=== PATIENT | male | born 1970 | race Caucasian/White ===

== ENCOUNTER → 2016-12-19 | Outpatient (CLI) | payer OTHER | END | disposition home or self-care (01) | LOC: LABWHC1 08:01 | PROVIDERS: ATTEND Psychiatry & Neurology Neurology | DX: G40.209 Localization-related (focal) (partial) symptomatic epilepsy and epileptic syndromes with complex partial seizures, not intractable, without status epilepticus (principal) | CPT/HCPCS: 36415; 80177 ==

== ENCOUNTER → 2017-09-14 | Outpatient (CLI) | payer OTHER | LOC: LABWHC1 08:10 | PROVIDERS: ATTEND Psychiatry & Neurology Neurology | DX: G40.209 Localization-related (focal) (partial) symptomatic epilepsy and epileptic syndromes with complex partial seizures, not intractable, without status epilepticus (principal) | CPT/HCPCS: 36415; 80177 ==

== ENCOUNTER → 2018-03-09 | Outpatient (CLI) | payer OTHER ==
--- NOTE | 2018-03-09 12:59 | ECHOS ---
STRESS ECHOCARDIOGRAM DATE OF SERVICE: 03/09/2018 INDICATIONS: Abnormal EKG MEDICATIONS: Lipitor. BASELINE HEART RATE: 70 BASELINE BLOOD PRESSURE: 110/52 MAXIMUM HEART RATE: 158 MAXIMUM BLOOD PRESSURE: 202/74 85% MPHR: 148 100% MPHR: 172 METS: 12.5 MAXIMUM STAGE REACHED: V TOTAL EXERCISE TIME: 12 minutes 15 seconds CLINICAL INFORMATION: Baseline rhythm sinus mechanism, rate of 70, RSR prime. Baseline blood pressure 110/52 mmHg. Patient exercised on Luigi protocol for 12 minute 15 seconds reaching a peak rate 158 beats per minute which is equal 92% maximum predicted heart rate. Peak blood pressure 202/74 mmHg. Test was terminated secondary to fatigue. There was chest pain. Electrocardiograph monitoring revealed no evidence of diagnostic ischemic ST deviation. Baseline echocardiogram revealed normal wall motion. At peak exercise, there was normal wall motion and augmentation. CONCLUSION: 1. Excellent exercise tolerance with normal electrocardiograph response to exercise. 2. Normal stress echocardiogram with no evidence of stress induced ischemia. MMODL / IJN: [id number] /
== END | disposition home or self-care (01) ==
LOC: RADNMMAIN 10:34
PROVIDERS: ATTEND Family Medicine
DX: R94.31 Abnormal electrocardiogram [ECG] [EKG] (principal)
CPT/HCPCS: 93351

== ENCOUNTER → 2018-05-07 | Outpatient (CLI) | payer OTHER | END | disposition home or self-care (01) | LOC: LABWHC1 08:27 | PROVIDERS: ATTEND Psychiatry & Neurology Neurology | DX: G40.209 Localization-related (focal) (partial) symptomatic epilepsy and epileptic syndromes with complex partial seizures, not intractable, without status epilepticus (principal) | CPT/HCPCS: 36415; 80177 ==

== ENCOUNTER → 2018-11-29 | Outpatient (CLI) | payer OTHER | END | disposition home or self-care (01) | LOC: LABWHC1 08:20 | PROVIDERS: ATTEND Psychiatry & Neurology Neurology | DX: G40.209 Localization-related (focal) (partial) symptomatic epilepsy and epileptic syndromes with complex partial seizures, not intractable, without status epilepticus (principal) | CPT/HCPCS: 36415; 80177 ==

== ENCOUNTER 2019-05-20 12:40 | Inpatient (IN) | payer OTHER ==
--- NOTE | 2019-05-20 13:43 | ED ---
Recheck HPI - General Source: patient, RN notes reviewed Mode of arrival: ambulatory Limitations: no limitations <Sid Culver - Last Filed: 05/20/19 15:24> <Brenden Patricia - Last Filed: 05/20/19 15:33> - General Chief Complaint: Recheck/Abnormal Lab/Rx Stated Complaint: Finger wound Time Seen by Provider: 05/20/19 13:08 - History of Present Illness Initial Comments: 49-year-old male presents emergency from chief complaint infection to his right hand third digit. Patient states that he has been seen Dr. Briones his PCP for this states that it started after doing some window work. He states it started as a small callous or blisterlike area states that it opened up and has progressed. He took a course of Keflex and states that then he was placed on Bactrim for a week and he said no improvement states it continues to worsen, increasing opening wound with purulent drainage increasing pain. Patient saw PCP today sent here for further evaluation, infectious disease consult and IV antibiotics. (Sid Culver) - Related Data Home Medications Medication Instructions Recorded Confirmed levETIRAcetam 1,000 mg PO BID 09/22/14 09/26/14 Allergies Allergy/AdvReac Type Severity Reaction Status Date / Time No Known Allergies Allergy Verified 05/20/19 13:03 Review of Systems ROS Other: All systems not noted in ROS Statement are negative. <Sid Culver - Last Filed: 05/20/19 15:24> ROS Other: All systems not noted in ROS Statement are negative. <Brenden Patricia - Last Filed: 05/20/19 15:33> ROS Statement: Those systems with pertinent positive or pertinent negative responses have been documented in the HPI. Past Medical History Past Medical History: Seizure Disorder Additional Past Medical History / Comment(s): epilepsy History of Any Multi-Drug Resistant Organisms: None Reported Past Surgical History: Back Surgery Past Anesthesia/Blood Transfusion Reactions: No Reported Reaction Past Psychological History: No Psychological Hx Reported Smoking Status: Never smoker Past Alcohol Use History: None Reported Past Drug Use History: None Reported - Past Family History Mother Family Medical History: Cancer <Sid Culver - Last Filed: 05/20/19 15:24> General Exam Limitations: no limitations General appearance: alert, in no apparent distress Head exam: Present: atraumatic, normocephalic, normal inspection Eye exam: Present: normal appearance, PERRL, EOMI. Absent: scleral icterus, conjunctival injection, periorbital swelling Respiratory exam: Present: normal lung sounds bilaterally. Absent: respiratory distress, wheezes, rales, rhonchi, stridor Cardiovascular Exam: Present: regular rate, normal rhythm, normal heart sounds. Absent: systolic murmur, diastolic murmur, rubs, gallop, clicks Extremities exam: Present: other (Right hand third digit there is an open area o n the ventral surface of the finger between the MCP and PIP there is some purulent drainage and bogginess the area) Skin exam: Present: warm, dry, intact <Sid Culver - Last Filed: 05/20/19 15:24> Course Vital Signs 05/20/19 13:03 Temperature 98.2 F Pulse Rate 82 Respiratory 16 Rate Blood Pressure 129/86 O2 Sat by Pulse 99 Oximetry Medical Decision Making - Lab Data Result diagrams: 05/20/19 13:35 05/20/19 13:35 <Sid Culver - Last Filed: 05/20/19 15:24> - Lab Data Result diagrams: 05/20/19 13:35 05/20/19 13:35 <Brenden Patricia - Last Filed: 05/20/19 15:33> - Medical Decision Making Patient's labwork is unremarkable chest x-ray shows no acute abnormality. Patient's has ongoing finger infection in which she's felt to antibiotics outpatient. Patient be admitted for IV antibiotics and ID consult (Sid Culver) Patient reexamined and reevaluated by myself, Dr. Patricia. I do agree with PAs findings. This includes interpretation and treatment plan as well as results. Case was discussed in detail with Dr. Kirkland, who will admit covering for Dr. Briones. (Brenden Patricia) - Lab Data Lab Results 05/20/19 05/20/19 05/20/19 Range/Units 13:35 13:35 13:35 WBC 7.3 (3.8-10.6) k/uL RBC 4.91 (4.30-5.90) m/uL Hgb 15.3 (13.0-17.5) gm/dL Hct 44.7 (39.0-53.0) % MCV 91.1 (80.0-100.0) fL MCH 31.2 (25.0-35.0) pg MCHC 34.3 (31.0-37.0) g/dL RDW 11.9 (11.5-15.5) % Plt Count 235 (150-450) k/uL Neutrophils % 65 % Lymphocytes % 18 % Monocytes % 7 % Eosinophils % 6 % Basophils % 2 % Neutrophils # 4.7 (1.3-7.7) k/uL Lymphocytes # 1.3 (1.0-4.8) k/uL Monocytes # 0.5 (0-1.0) k/uL Eosinophils # 0.4 (0-0.7) k/uL Basophils # 0.1 (0-0.2) k/uL Sodium 139 (137-145) mmol/L Potassium 4.0 (3.5-5.1) mmol/L Chloride 101 (98-107) mmol/L Carbon Dioxide 25 (22-30) mmol/L Anion Gap 13 mmol/L BUN 17 (9-20) mg/dL Creatinine 0.85 (0.66-1.25) mg/dL Est GFR (CKD-EPI)AfAm >90 (>60 ml/min/1.73 sqM) Est GFR (CKD-EPI)NonAf >90 (>60 ml/min/1.73 sqM) Glucose 100 H (74-99) mg/dL Plasma Lactic Acid Tevin 0.9 (0.7-2.0) mmol/L Calcium 10.1 (8.4-10.2) mg/dL Total Bilirubin 0.5 (0.2-1.3) mg/dL AST 44 (17-59) U/L ALT 108 H (21-72) U/L Alkaline Phosphatase 64 (38-126) U/L Total Protein 8.4 H (6.3-8.2) g/dL Albumin 5.4 H (3.5-5.0) g/dL Disposition <Sid Culver - Last Filed: 05/20/19 15:24> <Brenden Patricia - Last Filed: 05/20/19 15:33> Clinical Impression: Failure of outpatient treatment, Open wound of finger, infected Disposition: ADMITTED IP TO THIS [facility] Condition: Stable Referrals: Woo Briones MD [Primary Care Provider] - 1-2 days
[2019-05-20 13:48] LABS: Basophils # (A) 0.1 k/uL (0-0.2); Basophils % (A) 2 %; Eosinophils # (A) 0.4 k/uL (0-0.7); Eosinophils % (A) 6 %; HCT 44.7 % (39.0-53.0); HGB 15.3 gm/dL (13.0-17.5); Lymphocytes # (A) 1.3 k/uL (1.0-4.8); Lymphocytes % (A) 18 %; MCH 31.2 pg (25.0-35.0); MCHC 34.3 g/dL (31.0-37.0); MCV 91.1 fL (80.0-100.0); Monocytes # (A) 0.5 k/uL (0-1.0); Monocytes % (A) 7 %; Neutrophils # (A) 4.7 k/uL (1.3-7.7); Neutrophils % (A) 65 %; Platelet Count 235 k/uL (150-450); RBC 4.91 m/uL (4.30-5.90); RDW 11.9 % (11.5-15.5); WBC 7.3 k/uL (3.8-10.6)
[2019-05-20 14:09] LABS: ALT 108 U/L (21-72); AST 44 U/L (17-59); African American GFR (CKD) >90 (>60 ml/min/1.73 sqM); Albumin 5.4 g/dL (3.5-5.0); Alkaline Phosphatase 64 U/L (38-126); Anion Gap 13 mmol/L; Blood Urea Nitrogen 17 mg/dL (9-20); Calcium 10.1 mg/dL (8.4-10.2); Carbon Dioxide 25 mmol/L (22-30); Chloride 101 mmol/L (98-107); Glucose 100 mg/dL (74-99); Sodium 139 mmol/L (137-145); Total Bilirubin 0.5 mg/dL (0.2-1.3); Total Protein 8.4 g/dL (6.3-8.2)
--- NOTE | 2019-05-20 14:18 | XR ---
EXAMINATION TYPE: XR finger RT DATE OF EXAM: 05/20/2019 CLINICAL HISTORY: Infection of the right middle finger with pain TECHNIQUE: Frontal, lateral and oblique images of the right middle finger were obtained. COMPARISON: None. FINDINGS: There is no acute fracture/dislocation evident in the right hand. The joint spaces in the right hand appear within normal limits. No subcutaneous emphysema. No radiopaque foreign body. No per iosteal reaction. No cortical erosion. The overlying soft tissue demonstrates mild soft tissue swelli ng of the weems aspect of the proximal third digit. IMPRESSION: There is no acute fracture or dislocation in the right hand. Mild soft tissue swelling i s seen of the palmar proximal third digit without radiopaque foreign body nor radiographic sequela of osteomyelitis.
[2019-05-20] MEDS ORDERED: VANCOMYCIN IV PER PHARMACY 1 EACH MISC MISCELLANE PRN (15:23)
[2019-05-20] MEDS ORDERED: IBUPROFEN 400 MG TAB PO PRN (15:26)
[2019-05-20] MEDS ORDERED: ACETAMINOPHEN TAB 325 MG TAB PO PRN (15:26)
[2019-05-20] MEDS ORDERED: NALOXONE 0.4 MG/ML 1 ML VIAL IV PRN (15:26)
[2019-05-20] MEDS ORDERED: VANCOMYCIN 1,500 MG in SODIUM CHLORIDE 0.9% 250 ML IVPB STA (15:30)
[2019-05-20] MEDS: levETIRAcetam 500 MG TAB PO SCH (20:53)
[2019-05-20] MEDS: ATORVASTATIN 10 MG TAB PO SCH (20:53)
--- NOTE | 2019-05-20 23:47 | P.CONS ---
History of Present Illness - Reason for Consult Consult date: 05/20/19 Right third digit wound and cellulitis Requesting physician: Mckay Kirkland - Chief Complaint Right third digit wound and pain x few weeks - History of Present Illness Patient is a 49-year-old male who did sustained injury to his right third finger base on the palmar aspect about 3 weeks ago while he was trying to work on some windows/glass, the patient states initially he did have small blister in that area that has opened up late information of an ulcer with some surrounding swelling and redness the patient did have some dull aching pain to the area which at times can be throbbing intensity about 4-5 out of 10 and no radiation with associated swelling and redness the patient has been evaluated by his primary care physician and the patient has been treated with oral Keflex followed by Bactrim DS without any improvement the patient went to see his primary care physician today who sent the patient to the ER for admission to the hospital for IV antibiotic patient was quite limited by the ER physician showed on arrival to the ER has been afebrile his white count was normal the patient did have an x-rays of the right hand which did show some soft tissue swelling but no evidence of any foreign body or evidence of any bony changes patient did receive a dose of Rocephin has been started on vancomycin and admitted to the hospital infectious disease was consulted for further recommendation regarding antibiotic therapy Review of Systems CONSTITUTIONAL: Positive for weakness. Denies high-grade Fever EYES: No complaint. ENT:No complaint. RESPIRATORY: No complaint. CARDIOVASCULAR: No complaint. GENITOURINARY: No complaint. GASTROINTESTINAL: No complaint. MUSCULOSKELETAL: As per history of present illness INTEGUMENTARY: As per history of present illness PSYCHOLOGICAL: No complaint. ENDOCRINE: No complaint. NEUROLOGIC: No complaint. Past Medical History Past Medical History: Seizure Disorder Additional Past Medical History / Comment(s): epilepsy History of Any Multi-Drug Resistant Organisms: None Reported Past Surgical History: Back Surgery Past Anesthesia/Blood Transfusion Reactions: No Reported Reaction Past Psychological History: No Psychological Hx Reported Smoking Status: Never smoker Past Alcohol Use History: None Reported Past Drug Use History: None Reported - Past Family History Mother Family Medical History: Cancer Medications and Allergies Home Medications Medication Instructions Recorded Confirmed Type levETIRAcetam 1,000 mg PO BID 09/22/14 05/20/19 History Atorvastatin [Lipitor] 20 mg PO HS 05/20/19 05/20/19 History Sulfamethox-Tmp 800-160Mg [Bactrim 1 tab PO Q12HR 05/20/19 05/20/19 History DS 800-160 mg] Allergies Allergy/AdvReac Type Severity Reaction Status Date / Time No Known Allergies Allergy Verified 05/20/19 18:07 Physical Exam Vitals: Vital Signs Temp Pulse Resp BP Pulse Ox 05/20/19 13:03 98.2 F 82 16 129/86 99 Intake and Output 05/20/19 05/20/19 05/20/19 06:59 14:59 22:59 Other: Weight 88.451 kg GENERAL DESCRIPTION: Middle-aged male lying in bed, no distress. No tachypnea or accessory muscle of respiration use. HEENT: Shows Pallor , no scleral icterus. Oral mucous membrane is dry. No pharyngeal erythema or thrush NECK: Trachea central, no thyromegaly. LUNGS: Unlabored breathing. Clear to auscultation anteriorly. No wheeze or crackle. HEART: S1, S2, regular rate and rhythm. No loud murmur ABDOMEN: Soft, no tenderness , guarding or rigidity, no organomegaly EXTREMITIES: Right middle finger is swollen did have a wound at the base of the right third finger wound base with no slough tissue minimal redness no drainage SKIN: No rash, no masses palpable. NEUROLOGICAL: The patient is awake, alert, oriented x3, mood and affect normal. Results CBC & Chem 7: 05/20/19 13:35 05/20/19 13:35 Labs: Abnormal Lab Results - Last 24 Hours (Table) 05/20/19 Range/Units 13:35 Glucose 100 H (74-99) mg/dL ALT 108 H (21-72) U/L Total Protein 8.4 H (6.3-8.2) g/dL Albumin 5.4 H (3.5-5.0) g/dL Assessment and Plan Assessment: 1-patient with a right third finger wound traumatic with secondary cellulitis failing outpatient oral Keflex and Bactrim DS therapy clinically, will need: More likely from gram-positive skin dc to be responsible for these infection and nonhealing of the wound looks suspiciously low for underlying deep infection (1) Failure of outpatient treatment Current Visit: Yes Status: Acute Code(s): Z78.9 - OTHER SPECIFIED HEALTH STATUS SNOMED Code(s): 246414244 (2) Open wound of finger, infected Current Visit: Yes Status: Acute Code(s): S61.209A - UNSP OPEN WOUND OF UNSP FINGER W/O DAMAGE TO NAIL, INIT; L08.9 - LOCAL INFECTION OF THE SKIN AND SUBCUTANEOUS TISSUE, UNSP SNOMED Code(s): 800727797 Plan: 1-Vancomycin pharmacy to dose target trough of 15 while watching his kidney function and Vanco trough closely 2-local wound care to with a dry Aquacel silver dressing to be changed daily We will follow on clinical condition and cultures to further adjust medication if needed Thank you for this consultation will follow this patient with you Time with Patient: Greater than 30
[2019-05-21] MEDS: VANCOMYCIN 1,500 MG in SODIUM CHLORIDE 0.9% 250 ML IVPB SCH ×4 (00:31→23:37)
[2019-05-21] MEDS: levETIRAcetam 500 MG TAB PO SCH ×2 (07:35→20:09)
--- NOTE | 2019-05-21 12:50 | P.CNOR ---
History of Present Illness - [facility] Consult date: 05/21/19 Requesting physician: Mckay Kirkland Consult reason: other (Right middle finger proximal phalanx wound and pain; evaluate for possible I&D) History of present illness: Patient is a very pleasant 49-year-old male who is seen and examined at bedside for further evaluation of his right middle finger. Consultation was placed for possible irrigation debridement. Patient states approximately 4 weeks ago he was working with his right hand when he may have got a splinter or another injury to the padding of the proximal phalanx of the right middle finger. He states he began to experience some swelling and redness at this area. He followed with his primary care provider and was prescribed Keflex. He began to wrap his finger. He follow back up with his primary care provider after the antibiotic was not providing any significant improvement of the symptoms. He states after removing the bandage a large piece of skin over the wound site came off as well. He was started on Bactrim.. He states since that time his finger had continued to weep. He has had difficulty with working regular activities daily living due to his finger. He states the second antibiotic also did not provide any improvement of his symptoms. He states he followed up with his primary provider yesterday, 05/20/2019, who recommended him coming to the hospital for further evaluation. He was admitted. He has been seen and exam by Dr. Wilson in infectious disease. He has been started on vancomycin IV. He was also prescribed dressing changes of Aquacel, silver, and wrap. Patient denies any other injuries or difficulty. He denies specific injury to that right middle finger. He has active range of motion of other fingers and wrist of the right hand without difficulty. X-rays of the right middle finger were taken in the emergency department. Past Medical History Past Medical History: Seizure Disorder Additional Past Medical History / Comment(s): epilepsy History of Any Multi-Drug Resistant Organisms: None Reported Past Surgical History: Back Surgery Past Anesthesia/Blood Transfusion Reactions: No Reported Reaction Past Psychological History: No Psychological Hx Reported Smoking Status: Never smoker Past Alcohol Use History: None Reported Past Drug Use History: None Reported - Past Family History Mother Family Medical History: Cancer Medications and Allergies Home Medications Medication Instructions Recorded Confirmed Type levETIRAcetam 1,000 mg PO BID 09/22/14 05/20/19 History Atorvastatin [Lipitor] 20 mg PO HS 05/20/19 05/20/19 History Sulfamethox-Tmp 800-160Mg [Bactrim 1 tab PO Q12HR 05/20/19 05/20/19 History DS 800-160 mg] Allergies Allergy/AdvReac Type Severity Reaction Status Date / Time No Known Allergies Allergy Verified 05/20/19 18:07 Physical Examination Physical Exam: Patient is awake, alert, and oriented 3 Vital signs stable Good chest excursion with deep inspiration and expiration Examination of the right middle finger shows evidence of a large superficial abrasion/loss of skin over the pad of the middle finger at the right proximal phalanx Some evidence of weeping over the wound site of the proximal phalanx of the right middle finger Evidence of some skin irritation over the posterior aspect of the proximal phalanx of the right middle finger also with some weeping No evidence of significant bruising or obvious signs of infection over the right middle finger or right hand No evidence of streaking or obvious cellulitis over the right middle finger or right hand Active range of motion of all fingers of the right hand without significant difficulty Neurovascularly intact right upper extremity Results Pertinent studies: X-rays the right middle finger taken on 05/20/2019: No acute fracture or dislocation in the right hand: Mild soft tissue swelling is seen in the palmar proximal third digit without radiopaque foreign body or radiographic sequelae of osteomyelitis - Labs Labs: Abnormal Lab Results - Last 24 Hours (Table) 05/20/19 Range/Units 13:35 Glucose 100 H (74-99) mg/dL ALT 108 H (21-72) U/L Total Protein 8.4 H (6.3-8.2) g/dL Albumin 5.4 H (3.5-5.0) g/dL H & H 05/20/19 Range/Units 13:35 Hgb 15.3 (13.0-17.5) gm/dL Hct 44.7 (39.0-53.0) % Result Diagrams: 05/20/19 13:35 05/20/19 13:35 Assessment and Plan Assessment: Assessment: Right middle finger proximal phalanx pain Right middle finger proximal phalanx wound Failure of outpatient antibiotic regimen 2 History of epilepsy and seizure disorder (1) Finger pain, right Current Visit: Yes Status: Acute Code(s): M79.644 - PAIN IN RIGHT FINGER(S) SNOMED Code(s): 04468890 (2) History of epilepsy Current Visit: Yes Status: Acute Code(s): Z86.69 - PERSONAL HISTORY OF DIS OF THE NERVOUS SYS AND SENSE ORGANS SNOMED Code(s): 455082496 (3) Failure of outpatient treatment Current Visit: Yes Status: Acute Code(s): Z78.9 - OTHER SPECIFIED HEALTH STATUS SNOMED Code(s): 688084341 (4) Open wound of finger, infected Current Visit: Yes Status: Acute Code(s): S61.209A - UNSP OPEN WOUND OF UNSP FINGER W/O DAMAGE TO NAIL, INIT; L08.9 - LOCAL INFECTION OF THE SKIN AND SUBC UTANEOUS TISSUE, UNSP SNOMED Code(s): 831348036 Plan: Plan: 1. Patient has been discussed in detail with Dr. Gibran Evans. After physical examination the patient, further discussion with the patient, and reviewing imaging, we currently planning continue conservative treatment at this time. We are not planning for surgical intervention at the right proximal phalanx of the middle finger. He does have evidence of a significant skin abrasion/skin loss at the pad of the right proximal phalanx of the right middle finger without evidence of palpable fluid collection or obvious sign of infection. There is some weeping at the wound site without any purulent discharge. He has failed outpatient treatment with 2 separate oral antibiotics. At this time he is being seen and examined by Dr. Wilson in infectious disease and is currently on vancomycin. We recommend continuing with IV antibiotics as well as dressing changes as set forth by Dr. Wilson. If the patient's symptoms improve with conservative treatment, patient is clear for discharge from an orthopedic standpoint. We may plan to have the patient follow-up in outpatient setting in approximately 1 week for further evaluation. If the patient continues to i mprove in the outpatient setting, he may cancel this appointment prior to scheduled follow-up appointment time 2. Patient will continue be seen and examined by other medical providers including Dr. Wilson in infectious disease. Time with Patient: Greater than 30 (Including obtaining history, physical examination, reviewing of imaging, and dictation.)
[2019-05-21 14:23] LABS: C Reactive Protein <5.0 mg/L (<10.0); Uric Acid 4.4 mg/dL (3.5-8.5)
--- NOTE | 2019-05-21 16:56 | HP ---
HISTORY AND PHYSICAL DATE OF SERVICE: 05/21/2019 I am covering for Dr. Briones. CHIEF COMPLAINT: Pain and swelling of the right third digit. HISTORY OF PRESENT ILLNESS: This 49-year-old gentleman with a past medical history of seizure disorder, history of epilepsy, being followed by Dr. Woo Briones in the outpatient setting complaining of pain and swelling of the right 3rd digit proximal phalanx area. The patient noted swelling and blister-like lesions subsequently, which broke open and started discharging. The patient is complaining of pain and swelling. The patient has some difficulty in bending that particular finger also. Because of multiple difficulties, the patient came to [facility] and was admitted for further evaluation and treatment. Infectious Disease and Orthopedic evaluation in progress. There is no history of any chest pain, palpitation, shortness of breath, hematochezia, melena, fever, rigors, chills at this time. PAST MEDICAL HISTORY: Seizure disorder and epilepsy. MEDICATIONS ARE: 1. Bactrim DS 1 p.o. b.i.d. 2. Lipitor 20 mg q.h.s. 3. Keppra 1000 mg p.o. b.i.d. ALLERGIES: None. FAMILY HISTORY: History of cancer in the family. SOCIAL HISTORY: No history of smoking. Occasional alcohol intake. REVIEW OF SYSTEMS: ENT: No diminished vision. No diminished hearing. CARDIOVASCULAR: No angina or palpitations. RESPIRATORY SYSTEM: No cough or hemoptysis. GI no nausea or vomiting. no dysuria. NERVOUS SYSTEM: As mentioned earlier. ALLERGY/IMMUNOLOGY: No asthma or hayfever. MUSCULOSKELETAL: As mentioned earlier. HEMATOLOGY/ONCOLOGY: No history of anemia. ENDOCRINE: No history of diabetes or hypothyroidism. CONSTITUTIONAL: As mentioned earlier. DERMATOLOGY as mentioned earlier. RHEUMATOLOGY: Negative. PSYCHIATRY as mentioned earlier. PHYSICAL EXAMINATION: Alert and oriented times three. Pulse 66. Blood pressure 120/72, respiration 18, temperature 97 degrees, pulse ox 97% on room air. HEENT: Conjunctivae normal. NECK: No JVD. CARDIOVASCULAR: S1, S2. RESPIRATIONS: Breath sounds diminished in the bases. No rhonchi. No crackles. ABDOMEN: Soft, nontender. No mass palpable. LEGS: No edema. No swelling. NERVOUS SYSTEM: Higher functions as mentioned earlier. Moves all 4 limbs. No focal motor or sensory deficits. LYMPHATICS: No lymph nodes palpable in the neck, axillae or groin. SKIN: Some excoriation of the middle finger proximal phalanx. Otherwise normal. JOINTS: No active deforming arthropathy. Examination of the right hand significant pain and swelling of proximal phalanx of the right 3rd digit present with some excoriation and denudation of the skin also present. No purulent discharge is noted. The movement of the 3rd digit, especially in the metacarpophalangeal and proximal interphalangeal joints limited. LABS: CBC within normal limits. Glucose is 100, ALT is 108, and total protein is 8.2 and albumin is 5.5. ASSESSMENT: 1. Right third digit cellulitis with failure of outpatient treatment. 2. Increased ALT. 3. History of seizure disorder. 4. History of back surgery/degenerative joint disease. RECOMMENDATIONS AND DISCUSSION: In this 49-year-old gentleman who presented with multiple complex medical issues, we will monitor the patient closely, continue to monitor. Infectious Disease has been consulted. The patient is started on vancomycin and Rocephin. Obtain cultures. I would also recommend orthopedic evaluation also. Otherwise, a finger x-ray was done which showed no acute fracture and mild soft tissue swelling. We will closely follow with Infectious Disease as well as Orthopedic surgery. Further recommendations to follow. Orthopedic surgery is planning continued IV antibiotics and conservative line of management currently and outpatient followup. MMODL / IJN: [id number] /
[2019-05-21] MEDS: ATORVASTATIN 10 MG TAB PO SCH (20:09)
[2019-05-22] MEDS ORDERED: VANCOMYCIN TROUGH DUE 1 EACH MISC MISCELLANE ONE (07:00)
[2019-05-22] MEDS: levETIRAcetam 500 MG TAB PO SCH ×2 (07:19→21:44)
[2019-05-22] MEDS: VANCOMYCIN 1,500 MG in SODIUM CHLORIDE 0.9% 250 ML IVPB SCH ×3 (07:19→23:11)
[2019-05-22 08:01] LABS: Basophils % (A) 1 %; Eosinophils # (A) 0.5 k/uL (0-0.7); Eosinophils % (A) 9 %; HCT 41.5 % (39.0-53.0); HGB 14.1 gm/dL (13.0-17.5); Lymphocytes # (A) 1.5 k/uL (1.0-4.8); Lymphocytes % (A) 28 %; MCH 31.6 pg (25.0-35.0); Mean Platelet Volume 6.7; Monocytes # (A) 0.5 k/uL (0-1.0); Monocytes % (A) 9 %; Neutrophils # (A) 2.7 k/uL (1.3-7.7); Neutrophils % (A) 50 %; Platelet Count 209 k/uL (150-450); RBC 4.47 m/uL (4.30-5.90); RDW 11.9 % (11.5-15.5); WBC 5.5 k/uL (3.8-10.6)
[2019-05-22 08:19] LABS: ALT 100 U/L (21-72); AST 41 U/L (17-59); African American GFR (CKD) >90 (>60 ml/min/1.73 sqM); Albumin 4.5 g/dL (3.5-5.0); Alkaline Phosphatase 55 U/L (38-126); Anion Gap 11 mmol/L; Blood Urea Nitrogen 11 mg/dL (9-20); Calcium 9.6 mg/dL (8.4-10.2); Carbon Dioxide 25 mmol/L (22-30); Chloride 103 mmol/L (98-107); Glucose 95 mg/dL (74-99); Potassium 4.4 mmol/L (3.5-5.1); Sodium 139 mmol/L (137-145); Total Bilirubin 0.5 mg/dL (0.2-1.3); Total Protein 6.9 g/dL (6.3-8.2)
--- NOTE | 2019-05-22 11:17 | P.PN ---
Progress Note - Text Progress Note Date: 05/22/19 History of present illness: Patient is a very pleasant 49-year-old male who is seen and examined at bedside for follow-up evaluation of his right middle finger. Since being seen and examined yesterday he has not had any change in his symptoms. Patient states approximately 4 weeks ago he was working with his right hand when he may have got a splinter or another injury to the padding of the proximal phalanx of the right middle finger. He states he began to experience some swelling and redness at this area. He followed with his primary care provider and was prescribed Keflex. He began to wrap his finger. He follow back up with his primary care provider after the antibiotic was not providing any significant improvement of the symptoms. He states after removing the bandage a large piece of skin over the wound site came off as well. He was started on Bactrim.. He states since that time his finger had continued to weep. He has had difficulty with working regular activities daily living due to his finger. He states the second antibiotic also did not provide any improvement of his symptoms. He states he followed up with his primary provider yesterday, 05/20/2019, who recommended him coming to the hospital for further evaluation. He was admitted. He has been seen and examined by Dr. Wilson in infectious disease. He has been started on vancomycin IV. He is being seen by medicine as well. He was also prescribed dressing changes of Aquacel, silver, and wrap. Patient denies any other injuries or difficulty. He denies specific injury to that right middle finger. He has active range of motion of other fingers and wrist of the right hand wit hout difficulty. X-rays of the right middle finger were taken in the emergency department. Physical Exam: Patient is awake, alert, and oriented 3 Vital signs stable Good chest excursion with deep inspiration and expiration Examination of the right middle finger shows evidence of a large superficial abrasion/loss of skin over the pad of the middle finger at the right proximal phalanx Some evidence of weeping over the wound site of the proximal phalanx of the right middle finger Evidence of some skin irritation over the posterior aspect of the proximal phalanx of the right middle finger also with some weeping No evidence of significant bruising or obvious signs of infection over the right middle finger or right hand No evidence of streaking or obvious cellulitis over the right middle finger or right hand Active range of motion of all fingers of the right hand without significant difficulty Neurovascularly intact right upper extremity Pertinent studies: X-rays the right middle finger taken on 05/20/2019: No acute fracture or dislocation in the right hand: Mild soft tissue swelling is seen in the palmar proximal third digit without radiopaque foreign body or radiographic sequelae of osteomyelitis Assessment: Right middle finger proximal phalanx pain Right middle finger proximal phalanx wound Failure of outpatient antibiotic regimen 2 History of epilepsy and seizure disorder Plan: 1. We will continue with plan of care as previously set forth yesterday. Ravi fontaine has been discussed in detail with Dr. Gibran Prater. His goal exam remains stable no changes compared to yesterday. After physical examination the patient, further discussion with the patient, and reviewing imaging, we currently planning continue conservative treatment at this time. We are not planning for surgical intervention at the right proximal phalanx of the middle finger. He does have evidence of a significant skin abrasion/skin loss at the pad of the right proximal phalanx of the right middle finger without evidence of palpable fluid collection or obvious sign of infection. There is some weeping at the wound site without any purulent discharge. He has failed outpatient treatment with 2 separate oral antibiotics. At this time he is being seen and examined by Dr. Wilson in infectious disease and is currently on vancomycin. We recommend continuing with IV antibiotics as well as dressing changes as set forth by Dr. Wilson. If the patient's symptoms improve with conservative treatment, patient is clear for discharge from an orthopedic standpoint. We may plan to have the patient follow-up in outpatient setting in approximately 1 week for further evaluation. If the patient continues to improve in the outpatient setting, he may cancel this appointment prior to scheduled follow-up appointment time 2. Patient will continue be seen and examined by other medical providers including Dr. Wilson in infectious disease and Dr. Kirkland in medicine.
[2019-05-22] MEDS ORDERED: NYSTAT-TRIAMCIN 100,000-0.1 UNIT/GM-% CREAM 30 GM TUBE TOPICAL SCH (16:45)
[2019-05-22] MEDS: TRIAMCINOLONE 0.1% CREAM 80 GM TUBE TOPICAL SCH (17:23)
[2019-05-22] MEDS: NYSTATIN 100,000UNIT/GM CREAM 30 GM TUBE TOPICAL SCH (17:23)
[2019-05-22] MEDS ORDERED: VANCOMYCIN IV PER PHARMACY 1 EACH MISC MISCELLANE PRN (18:32)
--- NOTE | 2019-05-22 20:33 | PN ---
PROGRESS NOTE I am covering for Dr. Briones. DATE OF SERVICE: 05/22/2019 This is a 49 -year-old gentleman admitted with pain and infection of the right 3rd digit is being closely monitored. Patient on broad spectrum IV antibiotics. Cultures are pending at this time. Dr. Prater has seen the patient, recommended antibiotics. No chest pain. No palpitations. No fever. EXAM: Alert and oriented x3. Pulse is 80. Blood pressure 125/86, respiration 18, temperature 97.4, pulse ox 94% on room air. HEENT: Conjunctivae normal. NECK: No JVD. CARDIOVASCULAR: S1, S2 muffled. Respirations: Breath sounds diminished in the bases. No rhonchi. No crackles. ABDOMEN is soft, nontender. LEGS no edema. No swelling. NERVOUS SYSTEM: No focal deficits. Examination of the right hand significant diminution of skin and some tenderness and swelling and some excision of the serous fluid also present minimally. LAB STUDIES: CBC within normal limits. Sodium 130, potassium 4.2. Other labs are noted. Otherwise, microbiology is pending at this time. ASSESSMENT: 1. Right 3rd digit cellulitis with failure of outpatient treatment on IV antibiotics. 2. Increased ALT. 3. History of seizure disorder. 4. History of degenerative joint disease and back pain. RECOMMENDATIONS AND DISCUSSION: Recommend to continue current medications, management and symptomatic treatment. Otherwise, currently the patient is on vancomycin. We will continue to monitor. The pharmacy to re-dose the vancomycin. Further recommendations to follow. MMODL / IJN: [id number] /
[2019-05-22] MEDS: ATORVASTATIN 10 MG TAB PO SCH (21:44)
--- NOTE | 2019-05-22 22:59 | PN ---
PROGRESS NOTE DATE OF SERVICE: 05/22/2019. REASON FOR FOLLOWUP: Right 3rd finger wound and a question of cellulitis. INTERVAL HISTORY: The patient is currently afebrile. Patient is breathing comfortably. Denies having any chest pain. No shortness of breath or cough. The right 3rd finger swelling has slightly decreased. The patient did have developed an erythematous rash on the dorsal aspect of the 3rd finger and minimal drainage. PHYSICAL EXAMINATION: Blood pressure 125/86, pulse of 80. Temperature 97.4. He is 95% on room air. General description is a middle-aged male lying in the bed in no distress. Respiratory system: Unlabored breathing. Clear to auscultation anteriorly. Heart S1, S2. Regular rate and rhythm. ABDOMEN: Soft. No tenderness. Right middle finger swelling has slightly decreased. Did have pain over the dorsum aspect, wound site looks clean. LABS: Creatinine 0.73. Hemoglobin is 14.1, white count 5.5. Blood culture has been negative. DIAGNOSTIC IMPRESSION AND PLAN: Patient with right 3rd finger wound with secondary cellulitis failing outpatient Bactroban, Keflex therapy. Currently doing well on the vancomycin. Local care will be switched over to Aquacel silver dressing, Mycolog cream to the dorsum aspect of the right finger and reevaluate the patient tomorrow for discharge antibiotics. Continue supportive care. MMODL / IJN: [id number] /
[2019-05-23 06:29] VITALS: RESP 16
[2019-05-23] MEDS: VANCOMYCIN 1,500 MG in SODIUM CHLORIDE 0.9% 250 ML IVPB SCH (07:10)
[2019-05-23] MEDS: levETIRAcetam 500 MG TAB PO SCH (07:10)
[2019-05-23] MEDS: TRIAMCINOLONE 0.1% CREAM 80 GM TUBE TOPICAL SCH (07:16)
[2019-05-23] MEDS: NYSTATIN 100,000UNIT/GM CREAM 30 GM TUBE TOPICAL SCH (07:17)
[2019-05-23 09:12] LABS: ALT 96 U/L (21-72); AST 41 U/L (17-59); African American GFR (CKD) >90 (>60 ml/min/1.73 sqM); Albumin 4.5 g/dL (3.5-5.0); Alkaline Phosphatase 53 U/L (38-126); Anion Gap 13 mmol/L; Blood Urea Nitrogen 11 mg/dL (9-20); Calcium 9.6 mg/dL (8.4-10.2); Carbon Dioxide 25 mmol/L (22-30); Chloride 101 mmol/L (98-107); Glucose 186 mg/dL (74-99); Potassium 4.1 mmol/L (3.5-5.1); Sodium 139 mmol/L (137-145); Total Bilirubin 0.5 mg/dL (0.2-1.3)
[2019-05-23 13:09] VITALS: BP 122/75; PULSE 70; TEMP 98.2
--- NOTE | 2019-05-23 15:40 | P.DS ---
Providers Date of admission: 05/22/19 12:46 Expected date of discharge: 05/23/19 Attending physician: Woo Briones Consults: 05/20/19 15:27 Consult Physician Urgent Consulting Provider: Rufus Guillaume Consult Reason/Comments: Finger wound Do you want consulting provider notified?: Yes 05/21/19 11:42 Consult Physician Routine Consulting Provider: Elvis Prater Consult Reason/Comments: Possible I and D right middle fingure Do you want consulting provider notified?: Yes Primary care physician: Woo Briones Hospital Course: 49 year old male failed antibiotics with worsening finger cellulitis. admitted thru ER had evaluation by orthopedics and infection disease Improved assessment right middle finger cellulitis failed out patient hx of seizure disorder Patient Condition at Discharge: Stable Plan - Discharge Summary Discharge Rx Participant: No New Discharge Prescriptions: New Doxycycline [Vibramycin] 100 mg PO BID #20 cap Nystatin 100,000Unit/gm Cream [Mycostatin Cream] 1 applic TOPICAL BID 20 Days #1 tube Acetaminophen Tab [Tylenol] 650 mg PO Q6HR PRN tab PRN Reason: Mild Pain Or Fever > 100.5 Continue levETIRAcetam 1,000 mg PO BID Atorvastatin [Lipitor] 20 mg PO HS Discontinued Sulfamethox-Tmp 800-160Mg [Bactrim DS 800-160 mg] 1 tab PO Q12HR Discharge Medication List levETIRAcetam 1,000 mg PO BID 09/22/14 [History] Atorvastatin [Lipitor] 20 mg PO HS 05/20/19 [History] Acetaminophen Tab [Tylenol] 650 mg PO Q6HR PRN tab 05/23/19 [Rx] Doxycycline [Vibramycin] 100 mg PO BID #20 cap 05/23/19 [Rx] Nystatin 100,000Unit/gm Cream [Mycostatin Cream] 1 applic TOPICAL BID 20 Days #1 tube 05/23/19 [Rx] Follow up Appointment(s)/Referral(s): Woo Briones MD [Primary Care Provider] - 1-2 days Velasquez Martin PAC [PHYSICIAN [facility]] - 1 Week (Patient may follow-up with Velasquez Martin PA-C or Dr. Gibran Prater at [facility] in 1 week following discharge. ) Patient Instructions/Handouts: Cellulitis (DC) Activity/Diet/Wound Care/Special Instructions: follow-up at [facility] [address] [place] [address] 1. Avoid excessive activities with the right hand; specifically the right middle finger 2. Continue with dressing changes at set forth by infectious disease which is opticel silver applied dry to right middle finger and then secured with kirlex wrap. follow up with Dr guillaume in wound care next week , to make an appointment Discharge Disposition: HOME SELF-CARE
--- NOTE | 2019-05-23 22:51 | PN ---
PROGRESS NOTE DATE OF SERVICE: 05/23/2019. REASON FOR FOLLOW UP: Right 3rd finger wound and cellulitis. INTERVAL HISTORY: The patient is seen on rounds this morning. The patient has been afebrile. He is breathing comfortably. Right 3rd finger swelling and redness has decreased. Pain has improved and the redness has decreased. No drainage. PHYSICAL EXAMINATION: Blood pressure 152/75 with a pulse of 73, temperature 98.2. He is 95% on room air. General description is a middle-aged male up in the bed in no distress. Respiratory system: Unlabored breathing. Clear to auscultation anteriorly. Heart S1, S2. Regular rate and rhythm. Abdomen soft. No tenderness. Right middle finger dorsum redness has improved. Wound on the palmar aspect has dried out. LABORATORY DATA: His creatinine is normal. DIAGNOSTIC IMPRESSION AND PLAN: Patient with a right third finger wound with some fungal dermatitis on the dorsal aspect. Patient local care to continue with Aquacel Silver dressing to be changed every 8 hours. Apply Mycolog cream to the surrounding redness. Follow up in the [facility] in one week. Continue supportive care. MMODL / IJN: [id number] /
[2019-05-24] MEDS ORDERED: VANCOMYCIN TROUGH DUE 1 EACH MISC MISCELLANE ONE (07:00)
== END 2019-05-23 15:49 | disposition home or self-care (01) | DRG 603 ==
LOC: EC 12:40 → 4MS4W 15:30 → OBSVTOIN 05-22 12:46
PROVIDERS: ADMIT Family Medicine; ATTEND Family Medicine
DX: L03.011 Cellulitis of right finger (principal); B36.9 Superficial mycosis, unspecified; G40.909 Epilepsy, unspecified, not intractable, without status epilepticus; Z79.899 Other long term (current) drug therapy; Z80.9 Family history of malignant neoplasm, unspecified
CPT/HCPCS: 36415; 80053; 80202; 83605; 84550; 85025; 85652; 86140; 87040; 96360; 96365; 99285

== ENCOUNTER → 2019-05-26 | Outpatient (CLI) | payer OTHER | END | disposition home or self-care (01) | LOC: LABWHC1 09:32 | PROVIDERS: ATTEND Psychiatry & Neurology Neurology | DX: G40.209 Localization-related (focal) (partial) symptomatic epilepsy and epileptic syndromes with complex partial seizures, not intractable, without status epilepticus (principal) | CPT/HCPCS: 36415; 80177 ==

== ENCOUNTER → 2020-05-31 | Outpatient (CLI) | payer OTHER | END | disposition home or self-care (01) | LOC: LABWHC1 08:42 | PROVIDERS: ATTEND Psychiatry & Neurology Neurology | DX: G40.209 Localization-related (focal) (partial) symptomatic epilepsy and epileptic syndromes with complex partial seizures, not intractable, without status epilepticus (principal) | CPT/HCPCS: 36415; 80177 ==

== ENCOUNTER → 2020-08-21 | Outpatient (CLI) | payer OTHER ==
[2020-08-21 14:58] LABS: Basophils # (A) 0.03 X 10*3/uL (0.00-0.10); Basophils % (A) 0.6 %; Eosinophils # (A) 0.13 X 10*3/uL (0.04-0.35); Eosinophils % (A) 2.4 %; HCT 43.9 % (39.6-50.0); HGB 14.8 g/dL (13.0-17.0); Lymphocytes # (A) 1.71 X 10*3/uL (0.90-5.00); Lymphocytes % (A) 31.7 %; MCH 31.4 pg (27.0-32.0); MCHC 33.7 g/dL (32.0-37.0); MCV 93.2 fL (80.0-97.0); Mean Platelet Volume 11.6 fL (9.5-12.2); Monocytes # (A) 0.52 X 10*3/uL (0.20-1.00); Monocytes % (A) 9.6 %; Neutrophils # (A) 2.99 X 10*3/uL (1.80-7.70); Neutrophils % (A) 55.3 %; Platelet Count 223 X 10*3/uL (140-440); RBC 4.71 X 10*6/uL (4.40-5.60); RDW 11.9 % (11.5-14.5)
[2020-08-21 15:33] LABS: African American GFR (CKD) 122.4 (60.0-200.0); Albumin 5.2 g/dL (3.80-4.90); Albumin/Globulin Ratio 3.25 (1.60-3.17); Anion Gap 8.8 mmol/L (4.00-12.00); BUN/Creat Ratio 16.25 Ratio (12.00-20.00); Calcium 9.9 mg/dL (8.7-10.3); Carbon Dioxide 26.2 mmol/L (21.6-31.8); Chol/HDL Ratio 4.21; Globulin 1.6 g/dL (1.6-3.3); LDL Cholesterol,Calculated 100.4 mg/dL (0.0-131.0); Non-African American GFR(CKD) 105.6 (60.0-200.0); Potassium 4.3 mmol/L (3.5-5.5); Total Bilirubin 0.5 mg/dL (0.2-1.2); Total Protein 6.8 g/dL (6.2-8.2); VLDL Calculation 24.6 mg/dL (5.00-40.00)
[2020-08-21 17:21] LABS: Hemoglobin A1C 5.8 % (4.0-6.0)
== END | disposition home or self-care (01) ==
LOC: LABWHC1 08:15
PROVIDERS: ATTEND Nurse Practitioner Family
DX: E78.5 Hyperlipidemia, unspecified (principal); R03.0 Elevated blood-pressure reading, without diagnosis of hypertension; R73.9 Hyperglycemia, unspecified; Z12.5 Encounter for screening for malignant neoplasm of prostate
CPT/HCPCS: 80061; 80053; 85025; 83036; 36415; G0103

== ENCOUNTER → 2021-12-04 | Outpatient (CLI) | payer OTHER | END | disposition home or self-care (01) | LOC: LABWHC1 08:07 | PROVIDERS: ATTEND Psychiatry & Neurology Neurology | DX: G40.209 Localization-related (focal) (partial) symptomatic epilepsy and epileptic syndromes with complex partial seizures, not intractable, without status epilepticus (principal) | CPT/HCPCS: 36415; 80177 ==

== ENCOUNTER → 2023-07-29 | Outpatient (CLI) | payer OTHER ==
[2023-07-29 15:30] LABS: ALT 86 U/L (10-49); AST 43 U/L (14-35); Albumin/Globulin Ratio 2.38 Ratio (1.60-3.17); Alkaline Phosphatase 64 U/L (41-126); BUN/Creat Ratio 16.43 Ratio (12.00-20.00); Blood Urea Nitrogen 11.5 mg/dL (9.0-27.0); Carbon Dioxide 24.4 mmol/L (21.6-31.8); Chloride 103 mmol/L (96-109); Chol/HDL Ratio 3.46 Ratio; Globulin 2.1 g/dL (1.6-3.3); Glucose 102 mg/dL (70-110); LDL Cholesterol,Calculated 77.8 mg/dL (0.0-131.0); Potassium 4.3 mmol/L (3.5-5.5); Sodium 140 mmol/L (135-145); Total Bilirubin 0.5 mg/dL (0.3-1.2); Total Protein 7.1 g/dL (6.2-8.2)
[2023-07-29 15:49] LABS: Basophils # (A) 0.04 X 10*3/uL (0.00-0.10); Basophils % (A) 0.7 %; Eosinophils # (A) 0.19 X 10*3/uL (0.04-0.35); Eosinophils % (A) 3.4 %; HCT 42.5 % (39.6-50.0); HGB 14.4 g/dL (13.0-17.0); Lymphocytes # (A) 1.79 X 10*3/uL (0.90-5.00); Lymphocytes % (A) 31.9 %; MCH 31.2 pg (27.0-32.0); MCHC 33.9 g/dL (32.0-37.0); Mean Platelet Volume 11.4 FL (9.5-12.2); Monocytes % (A) 10.7 %; NRBC Per 100 WBC 0 X 10*3/uL (0.00-0.01); Neutrophils # (A) 2.98 X 10*3/uL (1.80-7.70); Neutrophils % (A) 52.9 %; Platelet Count 234 X 10*3/uL (140-440); RBC 4.62 X 10*6/uL (4.40-5.60); WBC 5.62 X 10*3/uL (4.50-10.00)
== END | disposition home or self-care (01) ==
LOC: LABWHC1 08:09
PROVIDERS: ATTEND Psychiatry & Neurology Neurology
DX: G40.909 Epilepsy, unspecified, not intractable, without status epilepticus (principal); E78.5 Hyperlipidemia, unspecified
CPT/HCPCS: 36415; 80053; 80061; 80177; 84443; 85025

== ENCOUNTER → 2024-02-10 | Outpatient (CLI) | payer OTHER ==
[2024-02-10 15:04] LABS: Basophils # (A) 0.03 X 10*3/uL (0.00-0.10); Basophils % (A) 0.5 %; Eosinophils # (A) 0.18 X 10*3/uL (0.04-0.35); Eosinophils % (A) 3.3 %; HCT 42.1 % (39.6-50.0); HGB 14.1 g/dL (13.0-17.0); Lymphocytes # (A) 1.71 X 10*3/uL (0.90-5.00); Lymphocytes % (A) 31.3 %; MCH 31.3 pg (27.0-32.0); MCHC 33.5 g/dL (32.0-37.0); MCV 93.6 FL (80.0-97.0); Mean Platelet Volume 11.4 FL (9.5-12.2); Monocytes # (A) 0.59 X 10*3/uL (0.20-1.00); Monocytes % (A) 10.8 %; NRBC Per 100 WBC 0 X 10*3/uL (0.00-0.01); Neutrophils # (A) 2.94 X 10*3/uL (1.80-7.70); Neutrophils % (A) 53.7 %; Platelet Count 233 X 10*3/uL (140-440); RDW 12.1 % (11.5-14.5); WBC 5.47 X 10*3/uL (4.50-10.00)
[2024-02-10 15:31] LABS: ALT 48 U/L (10-49); AST 31 U/L (14-35); Albumin 5.1 g/dL (3.8-4.9); Albumin/Globulin Ratio 2.83 Ratio (1.60-3.17); Alkaline Phosphatase 71 U/L (41-126); Calcium 9.8 mg/dL (8.7-10.3); Carbon Dioxide 23.5 mmol/L (21.6-31.8); Chloride 104 mmol/L (96-109); Chol/HDL Ratio 3.72 Ratio; Globulin 1.8 g/dL (1.6-3.3); Glucose 111 mg/dL (70-110); LDL Cholesterol,Calculated 78.2 mg/dL (0.0-131.0); Potassium 4.3 mmol/L (3.5-5.5); Prostate Specific Antigen 2.24 ng/mL (0.000-3.500); Sodium 139 mmol/L (135-145); Total Bilirubin 0.4 mg/dL (0.3-1.2); Total Protein 6.9 g/dL (6.2-8.2)
== END | disposition home or self-care (01) ==
LOC: LABWHC1 08:03
PROVIDERS: ATTEND Psychiatry & Neurology Neurology
DX: Z12.5 Encounter for screening for malignant neoplasm of prostate (principal); G40.909 Epilepsy, unspecified, not intractable, without status epilepticus; E78.5 Hyperlipidemia, unspecified
CPT/HCPCS: 36415; 80053; 80061; 80177; 83036; 84153; 84443; 85025